=== PATIENT | female | born 1985 | race Caucasian/White ===

== ENCOUNTER 2019-01-16 18:18 | Emergency (ER) | payer BC ==
[~2019-01-16] VITALS: Ht 162.6 cm; Wt 59.1 kg
[2019-01-16 18:21] VITALS: Ht 162.6 cm; Wt 59.1 kg
[2019-01-16] MEDS ORDERED: AUGMENTIN 875-11 TAB PO (19:24)
[2019-01-16 19:33] VITALS: BP 122/74
== END 2019-01-16 19:34 | disposition home or self-care (01) ==
LOC: D.ER 18:18
DX: S61.310A Laceration without foreign body of right index finger with damage to nail, initial encounter (principal); W26.8XXA Contact with other sharp object(s), not elsewhere classified, initial encounter; Y93.89 Activity, other specified; Y92.89 Other specified places as the place of occurrence of the external cause; S62.630A Displaced fracture of distal phalanx of right index finger, initial encounter for closed fracture

== ENCOUNTER 2019-04-11 08:00 | Outpatient (CLI) | payer BC ==
[2019-01-16 18:21] VITALS: BMI 22.3
[~2019-04-11 08:00] MED LIST: AUGMENTIN 875-11 TAB PO
== END 2019-04-11 23:59 | disposition home or self-care (01) ==
LOC: D.MAMMO 08:00
PROVIDERS: ATTEND Obstetrics & Gynecology
DX: Z12.31 Encounter for screening mammogram for malignant neoplasm of breast (principal)

== ENCOUNTER → 2019-08-06 07:51 | Outpatient (CLI) | payer BC ==
[2019-01-16 18:21] VITALS: BMI 22.3
== END | disposition home or self-care (01) ==
LOC: D.US 07:51
PROVIDERS: ATTEND Family Medicine
DX: R10.84 Generalized abdominal pain (principal)

== ENCOUNTER 2019-10-07 06:58 | Emergency (ER) | payer BC ==
[~2019-10-07] VITALS: Ht 162.6 cm; Wt 61.4 kg
[2019-10-07 07:01] VITALS: Ht 162.6 cm; Wt 61.4 kg
[2019-10-07 07:25] LABS: HCG URINE NEGATIVE (NEGATIVE)
[2019-10-07] MEDS ORDERED: PREDNISONE20 MG PO (08:13)
[2019-10-07 08:35] VITALS: BP 111/78
== END 2019-10-07 08:38 | disposition home or self-care (01) ==
LOC: D.ER 06:58
PROVIDERS: Family Medicine
DX: M54.2 Cervicalgia (principal); V86.95XA Unspecified occupant of 3- or 4- wheeled all-terrain vehicle (ATV) injured in nontraffic accident, initial encounter; Y93.9 Activity, unspecified; Y92.9 Unspecified place or not applicable; R53.1 Weakness; R20.0 Anesthesia of skin; R11.0 Nausea